=== PATIENT | female | born 1995 | race American Indian/Alaskan Native ===

== ENCOUNTER 2017-06-19 10:15 | Emergency (ER) | payer OTHER ==
--- NOTE | 2017-06-19 11:50 | EDM.PDOC ---
<Apurva Gimenez - Last Filed: 06/19/17 12:12> ED HPI GENERAL MEDICAL PROBLEM - General Chief Complaint: Back Pain or Injury Stated Complaint: BACK SPASMS/LEG PAIN Time Seen by Provider: 06/19/17 10:44 - History of Present Illness INITIAL COMMENTS - FREE TEXT/NARRATIVE: Patient is a 22 year old female who presents with multiple complaints. Her main concerns are bilateral knee pain and mid back pain. She states she tore ligaments in both her knees in 2014. She has had pain since then but the pain has been significantly worse since Monday, and it hurts to walk and bend both her knees. Her back pain began after she saw a chiropractor in [place] in February 2017. She also states she gets back spasms and pain with deep inspiration. She also reports non-specific shoulder pain and pain in her right thumb. She was seen in the [place] ED in [facility] on Monday for her pain and was sent home with prescriptions for diazepam and orphenadrine. She states she has had no relief from her pain from the medications. She vomited once this morning after taking her medication. She denies any numbness or tingling in her extremities. She takes tylenol occasionally for her pain. She has a history of PCOS but does not take any medications nor follows with a PCP. No family history of any autoimmune arthritis that she knows of. - Related Data Allergies Allergy/AdvReac Type Severity Reaction Status Date / Time No Known Allergies Allergy Verified 06/19/17 10:26 Home Meds: Home Meds Acetaminophen/HYDROcodone [[place] 325-5 MG] 1 tab PO Q6HR PRN #20 tablet [Rx] Diazepam [Valium] 5 mg PO TID PRN 06/19/17 [History] Naproxen [Naprosyn] 500 mg PO Q12HR #14 tab 06/19/17 [Rx] Orphenadrine [Norflex] 100 mg PO QID 06/19/17 [History] Past Medical History Musculoskeletal History: Reports: Back Pain, Chronic, Other (See Below) Other Musculoskeletal History: chronic bilateral knee pain Social & Family History - Tobacco Use Smoking Status *Q: Never Smoker Second Hand Smoke Exposure: No - Caffeine Use Caffeine Use: Reports: Soda - Recreational Drug Use Recreational Drug Use: No ED ROS GENERAL - Review of Systems Constitutional: Reports: No Symptoms Respiratory: Reports: Shortness of Breath, Other (pain with deep inspiration due to back pain) Cardiovascular: Reports: No Symptoms GI/Abdominal: Reports: Nausea, Vomiting (x1). Denies: Abdominal Pain, Constipation Musculoskeletal: Reports: Neck Pain, Shoulder Pain, Back Pain, Hand Pain (right thumb), Joint Pain, Muscle Pain Neurological: Denies: Numbness, Tingling ED EXAM, UPPER BACK/NECK PAIN - Physical Exam Exam Limited By: No Limitations General Appearance: Alert, No Apparent Distress Back Exam: Decreased Range of Motion, Other (mid back muscular pain). No: Vertebral Tenderness Extremities: Limited Range of Motion (due to bilateral knee pain), Other ( tenderness over left patellar tendon; tenderness over righ tibial plateau; non specific pain with ROM). No: Slow Capillary Refill, Joint Swelling, Redness Neurologic: No Motor/Sensory Deficits, Alert, Normal Mood/Affect, Oriented x 3 Psychiatric: Normal Affect, Normal Mood Course - Vital Signs Last Recorded V/S: Last Vital Signs Temp 96.9 F 06/19/17 10:23 Pulse 98 06/19/17 10:23 Resp 18 06/19/17 10:23 BP 126/82 06/19/17 10:23 Pulse Ox 98 06/19/17 10:23 - Orders/Labs/Meds Orders: Active Orders 24 hr Category Date Time Status KAYLEEN SCREEN RFLX [REF] Stat Lab 06/19/17 11:40 Received Labs: Laboratory Tests 06/19/17 06/19/17 06/19/17 Range/Units 11:40 11:40 11:40 WBC 13.29 H (3.98-10.04) K/mm3 RBC 4.46 (3.98-5.22) M/mm3 Hgb 12.1 (11.2-15.7) gm/L Hct 38.3 (34.1-44.9) % MCV 85.9 (79.4-94.8) fl MCH 27.1 (25.6-32.2) pg MCHC 31.6 L (32.2-35.5) g/dl RDW Std Deviation 45.1 (36.4-46.3) fL Plt Count 490 H (182-369) K/mm3 MPV 9.1 L (9.4-12.3) fl Neut % (Auto) 71.6 H (34.0-71.1) % Lymph % (Auto) 21.1 (19.3-51.7) % [place] % (Auto) 6.3 (4.7-12.5) % Eos % (Auto) 0.2 L (0.7-5.8) Baso % (Auto) 0.4 (0.1-1.2) % Neut # (Auto) 9.52 H (1.56-6.13) K/mm3 Lymph # (Auto) 2.80 (1.18-3.74) K/mm3 [place] # (Auto) 0.84 H (0.24-0.36) K/mm3 Eos # (Auto) 0.03 L (0.04-0.36) K/mm3 Baso # (Auto) 0.05 (0.01-0.08) K/mm3 ESR 92 H (0-20) mm/hr Sodium 137 (136-145) mEq/L Potassium 4.2 (3.5-5.1) mEq/L Chloride 101 (98-107) mEq/L Carbon Dioxide 25 (21-32) mEq/L Anion Gap 15.2 H (5-15) BUN 16 (7-18) mg/dL Creatinine 1.0 (0.55-1.02) mg/dL Est Cr Clr Drug Dosing 96.96 mL/min Estimated GFR (MDRD) > 60 (>60) mL/min BUN/Creatinine Ratio 16.0 (14-18) Glucose 113 H (74-106) mg/dL Calcium 9.2 (8.5-10.1) mg/dL Total Bilirubin 0.3 (0.2-1.0) mg/dL AST 19 (15-37) U/L ALT 30 (14-59) U/L Alkaline Phosphatase 81 (46-116) U/L C-Reactive Protein 5.7 H* (<1.0) mg/dL Total Protein 9.2 H (6.4-8.2) g/dl Albumin 3.6 (3.4-5.0) g/dl Globulin 5.6 gm/dL Albumin/Globulin Ratio 0.6 L (1-2) Rheumatoid Factor Scrn (NEGATIVE) 06/19/17 Range/Units 11:40 WBC (3.98-10.04) K/mm3 RBC (3.98-5.22) M/mm3 Hgb (11.2-15.7) gm/L Hct (34.1-44.9) % MCV (79.4-94.8) fl MCH (25.6-32.2) pg MCHC (32.2-35.5) g/dl RDW Std Deviation (36.4-46.3) fL Plt Count (182-369) K/mm3 MPV (9.4-12.3) fl Neut % (Auto) (34.0-71.1) % Lymph % (Auto) (19.3-51.7) % [place] % (Auto) (4.7-12.5) % Eos % (Auto) (0.7-5.8) Baso % (Auto) (0.1-1.2) % Neut # (Auto) (1.56-6.13) K/mm3 Lymph # (Auto) (1.18-3.74) K/mm3 [place] # (Auto) (0.24-0.36) K/mm3 Eos # (Auto) (0.04-0.36) K/mm3 Baso # (Auto) (0.01-0.08) K/mm3 ESR (0-20) mm/hr Sodium (136-145) mEq/L Potassium (3.5-5.1) mEq/L Chloride (98-107) mEq/L Carbon Dioxide (21-32) mEq/L Anion Gap (5-15) BUN (7-18) mg/dL Creatinine (0.55-1.02) mg/dL Est Cr Clr Drug Dosing mL/min Estimated GFR (MDRD) (>60) mL/min BUN/Creatinine Ratio (14-18) Glucose (74-106) mg/dL Calcium (8.5-10.1) mg/dL Total Bilirubin (0.2-1.0) mg/dL AST (15-37) U/L ALT (14-59) U/L Alkaline Phosphatase (46-116) U/L C-Reactive Protein (<1.0) mg/dL Total Protein (6.4-8.2) g/dl Albumin (3.4-5.0) g/dl Globulin gm/dL Albumin/Globulin Ratio (1-2) Rheumatoid Factor Scrn Negative (NEGATIVE) Meds: Medications Discontinued Medications Generic Name Dose Route Start Last Admin Trade Name Freq PRN Reason Stop Dose Admin Hydrocodone Bitart/Acetaminophen 1 tab 06/19/17 13:59 06/19/17 14:07 [place] 325-5 Mg PO 06/19/17 14:00 1 tab ONETIME ONE Administration Ketorolac Tromethamine 60 mg 06/19/17 13:58 06/19/17 14:08 Toradol IM 06/19/17 13:59 60 mg ONETIME ONE Administration Prednisone 60 mg 06/19/17 13:58 06/19/17 14:08 Prednisone PO 06/19/17 13:59 60 mg ONETIME ONE Administration Departure - Departure Disposition: Home, Self-Care 01 Clinical Impression: Polyarthritis of multiple sites Back pain Qualifiers: Back pain location: thoracic back pain Chronicity: acute Back pain laterality: unspecified Qualified Code(s): M54.6 - Pain in thoracic spine - Discharge Information Prescriptions: Acetaminophen/HYDROcodone [[place] 325-5 MG] 1 tab PO Q6HR PRN #20 tablet PRN Reason: Pain Naproxen [Naprosyn] 500 mg PO Q12HR #14 tab Referrals: PCP,None [Primary Care Provider] - Forms: ED Department Discharge Additional Instructions: rest, increase activity slowly as tolerated, alternate heat and ice to areas of discomfort, naprosyn 500 mg twice daily with food, stop the previous meds prescribed Monday. Prednisone as prescribed. Tylenol up to 3 times daily for further pain relief or Hydrocodone 1 tab q 6 to 8 hr if needed for severe pain. Do not take tylenol and hydrocodone at the same time. Do not drive or work when taking hydrocodone. See Dr Reyes at our [facility] medical clinic 10:00 mtn time this June 22. - My Orders Last 24 Hours: My Active Orders 06/19/17 11:40 KAYLEEN SCREEN RFLX [REF] Stat - Assessment/Plan Last 24 Hours: My Active Orders 06/19/17 11:40 KAYLEEN SCREEN RFLX [REF] Stat <Uche Bahena - Last Filed: 06/19/17 14:36> ED HPI GENERAL MEDICAL PROBLEM - General Source of Information: Reports: Patient, RN Notes Reviewed ED ROS GENERAL - Review of Systems Review Of Systems: See Below Constitutional: Denies: Fever, Chills Respiratory: Denies: Pleuritic Chest Pain Skin: Denies: Rash, Erythema Neurological: Reports: Difficulty Walking (due to bilat knee discomfort) ED EXAM, UPPER BACK/NECK PAIN - Physical Exam Exam: See Below Head Exam: Atraumatic. No: Facial Swelling Neck Exam: Full Range of Motion Cardiovascular/Respiratory: Regular Rate, Rhythm Back Exam: Other Extremities: Other. No: Pedal Edema, Leg Pain, Increased Warmth Skin Exam: Normal Color, Warm/Dry. No: Rash Course - Re-Assessments/Exams Free Text/Narrative Re-Assessment/Exam: 06/19/17 14:27 Patient initially evaluated by JONNY Espinosa student. I agree with her hx and exam as documented. I also examined patient and took further hx. She does have sigificant low back, bilat knee, L hand discomfort which does seem to be inflamatory. CRP elevated, sed rate 92. Will start on prednisone 60 mg bid for 3 days and than taper, naprosyn 500 mg bid, with tylenol or hydrocodone in addition depending on pain severity. Discharge instr. as documented. Followup with Dr Reyes, Clinic . Departure - Departure Time of Disposition: 14:05 Condition: Fair
[2017-06-19] MEDS ORDERED: predniSONE 20 MG Tab PO ONE (13:58)
[2017-06-19] MEDS ORDERED: Ketorolac 60 MG/2 ML SDV IM ONE (13:58)
[2017-06-19] MEDS ORDERED: Acetaminophen/HYDROcodone 325-5 MG Tab PO ONE (13:59)
== END 2017-06-19 14:30 | disposition home or self-care (01) ==
LOC: JD.ED 10:15
DX: M54.6 Pain in thoracic spine (principal); M25.561 Pain in right knee; M25.562 Pain in left knee; M13.0 Polyarthritis, unspecified
CPT/HCPCS: 36415; 80053; 85025; 85652; 86038; 86140; 86430; 96372; 99283; A9270; J1885

== ENCOUNTER 2017-07-11 17:44 | Emergency (ER) | payer OTHER ==
[2017-07-11] MEDS ORDERED: Naproxen 500 MG Tab PO ONE (18:33)
--- NOTE | 2017-07-11 18:42 | EDM.PDOC ---
ED HPI GENERAL MEDICAL PROBLEM - General Chief Complaint: Back Pain or Injury Stated Complaint: KNEE PAIN AND BACK PAIN Time Seen by Provider: 07/11/17 18:00 Source of Information: Reports: Patient, Old Records History Limitations: Reports: No Limitations - History of Present Illness INITIAL COMMENTS - FREE TEXT/NARRATIVE: The patient presents with mid-back pain since February 2017, causing trouble sleeping. She has had bilateral knee pain and inflammation for over a month, right second toe pain and inflammation for over 2 weeks, right elbow pain for about one month, right first MCP joint pain for about one month, and left 2nd and 3rd PIP joint pain and inflammation for about a week. She was seen at the [facility] ED on 06/17/2017, and discharged home with prescriptions for Valium and Norflex. She states that these did not help. She was then seen in our emergency department on 06/19/2017. Her WBC was elevated at 13.29, her ESR elevated at 92, CRP 5.7, however, her RF and KAYLEEN were both negative. She was prescribed a prednisone taper, [place], and naproxen. She then followed up with Dr. Reyes on 06/27/2017. Dr. Reyes offered x- rays of her knees and a referrals to PT and a Assistant Terminal Manager in [place], all of which the patient declined, citing lack of insurance. She was prescribed [place] for PCOS, and naproxen 500 mg Q12h hrs, that the patient states she did not fill, because she does not believe that it helps. The patient has an appointment to follow-up with Dr. Reyes tomorrow morning at 09:30. She presents to the ED tonight, however, because she does not feel that she can make it until tomorrow. She states that she took some [id number] Tylenol, without relief. Treatments MACHINE FITTER: Reports: Other (see below) Other Treatments MACHINE FITTER: tylenol arthritis 650 mg 2 hours ago Bilateral Knee Pain Score (Numeric/FACES): 9 Back Pain Score (Numeric/FACES): 7 - Related Data Allergies Allergy/AdvReac Type Severity Reaction Status Date / Time No Known Allergies Allergy Verified 07/11/17 17:56 Home Meds: Home Meds Acetaminophen/HYDROcodone [[place] 325-5 MG] 1 tab PO Q6HR PRN #20 tablet [Rx] Diazepam [Valium] 5 mg PO TID PRN 06/19/17 [History] Naproxen [Naprosyn] 500 mg PO Q12HR #14 tab 06/19/17 [Rx] Orphenadrine [Norflex] 100 mg PO QID 06/19/17 [History] Past Medical History HEENT History: Reports: Allergic Rhinitis [employer] History: Reports: Polycystic Ovaries Musculoskeletal History: Reports: Other (See Below) (Polyarthritis, NOS) Psychiatric History: Reports: Anxiety Endocrine/Metabolic History: Reports: Obesity/BMI 30+ Social & Family History - Tobacco Use Smoking Status *Q: Light Tobacco Smoker Years of Tobacco use: 10 Packs/Tins Daily: 0.1 Second Hand Smoke Exposure: No - Caffeine Use Caffeine Use: Reports: Soda - Alcohol Use Alcohol Use History: Yes Date/Time of Last Drink Comment: History of alcohol abuse - Recreational Drug Use Recreational Drug Use: No ED ROS GENERAL - Review of Systems Review Of Systems: ROS reveals no pertinent complaints other than HPI. ED EXAM, GENERAL - Physical Exam Exam: See Below Exam Limited By: No Limitations General Appearance: Alert, WD/WN, No Apparent Distress Eye Exam: Bilateral Eye: Normal Inspection Ears: Normal External Exam, Hearing Grossly Normal Nose: Normal Inspection, No Blood Throat/Mouth: Normal Inspection, Normal Lips, Normal Voice, No Airway Compromise Head: Atraumatic, Normocephalic Neck: Normal Inspection Back Exam: Normal Inspection Extremities: Other (Synovitis noted to the right 2nd toe, and to the left 3rd and 4th PIP joints. No visible abnormality to either of the patient's knees, right elbow, or right first MCP joint.) Course - Vital Signs Last Recorded V/S: Last Vital Signs Temp 35.6 C 07/11/17 17:56 Pulse 78 07/11/17 17:56 Resp 15 07/11/17 17:56 BP 118/67 07/11/17 17:56 Pulse Ox 98 07/11/17 17:56 - Orders/Labs/Meds Meds: Medications Discontinued Medications Generic Name Dose Route Start Last Admin Trade Name Freq PRN Reason Stop Dose Admin Naproxen 500 mg 07/11/17 18:33 07/11/17 18:48 Naprosyn PO 07/11/17 18:34 500 mg ONETIME ONE Administration - Re-Assessments/Exams Free Text/Narrative Re-Assessment/Exam: 07/11/17 18:38 Clearly, the patient has polyarthritis, however, the etiology is unclear. Her ESR and CRP were both elevated, and there is obvious synovitis to her affected joints, however, with the exception of her knees, the joints involved are asymmetric. Both her RF and KAYLEEN were negative. While this makes lupus extremely unlikely, it does not rule out seronegative arthritis. I explained to the patient that the diagnosis cannot be made from the ED, and that she will have to see a Assistant Terminal Manager. For today's purposes, I am reluctant to re-prescribe prednisone, given its long- term effects. The patient was prescribed naproxen by Dr. Reyes, but she has not filled the prescription. I am encouraging her to do so. Departure - Departure Time of Disposition: 18:34 Disposition: Home, Self-Care 01 Condition: Fair Clinical Impression: Polyarthritis of multiple sites - Discharge Information Instructions: Arthritis Referrals: Richa Reyes MD [Primary Care Provider] - Forms: ED Department Discharge Additional Instructions: You were seen in the emergency room for continued mid back, bilateral knee, right second toe, right elbow, right thumb joint and left third and fourth finger swelling and pain. Unfortunately, the cause of your symptoms is not able to be diagnosed from the ER. You will need to see a Assistant Terminal Manager. You were started on naproxen in the ER. We recommend that you fill the prescription given to by Dr. Reyes and take it every 12 hours, as prescribed. We recommend that you either follow-up with Dr. Reyes at your previously scheduled appointment tomorrow morning at 09:30 OR make your own appointment to see a Assistant Terminal Manager in [place]. If any other problems, please do not hesitate to return to the ER.
== END 2017-07-11 18:50 | disposition home or self-care (01) ==
LOC: JD.ED 17:44
DX: M13.0 Polyarthritis, unspecified (principal); F17.210 Nicotine dependence, cigarettes, uncomplicated; Z79.899 Other long term (current) drug therapy
CPT/HCPCS: 99283; A9270

== ENCOUNTER 2018-05-17 13:11 | Emergency (ER) | payer SELFPAY ==
--- NOTE | 2018-05-17 14:12 | EDM.PDOC ---
ED HPI GENERAL MEDICAL PROBLEM - General Chief Complaint: Back Pain or Injury Stated Complaint: ARTHRITIS Time Seen by Provider: 05/17/18 13:21 Source of Information: Reports: Patient, RN Notes Reviewed - History of Present Illness INITIAL COMMENTS - FREE TEXT/NARRATIVE: 22-year-old female comes in with bilateral low back discomfort. 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 She has been diagnosed with rheumatoid arthritis. She had been living in [place], came to [place] to be with friends or family about 10 days ago, left her meds in [place]. She was on meloxicam, was getting subcutaneous Humira every 2 weeks and also using some when necessary hydrocodone. Also her menstrual periods been very irregular the last 2 months with some intermittent spotting, did what may have been a short menstrual period about a week ago. Has not been using control so does have some concerns about possible as well. Had some voiding frequency occasional mild dysuria, also concern about possible UTI. Lower Back Pain Score (Numeric/FACES): 8 Left Knee Pain Score (Numeric/FACES): 8 Right Toe-Middle Pain Score (Numeric/FACES): 8 - Related Data Allergies Allergy/AdvReac Type Severity Reaction Status Date / Time No Known Allergies Allergy Verified 05/17/18 13:25 Home Meds: Home Meds Acetaminophen/HYDROcodone [[place] 325-5 MG] 1 tab PO Q8HR PRN #14 tablet [Rx] Adalimumab [Humira] 10 mg SQ ASDIRECTED 05/17/18 [History] Control Pill 05/17/18 [History] Ibuprofen [Motrin] 800 mg PO TID #20 tablet 05/17/18 [Rx] Meloxicam 15 mg PO DAILY 05/17/18 [History] Past Medical History - Past Health History Medical/Surgical History: Denies Medical/Surgical History HEENT History: Reports: Allergic Rhinitis DIPLOMATIC OFFICER History: Reports: Polycystic Ovaries Musculoskeletal History: Reports: Other (See Below) (Polyarthritis, NOS) Other Musculoskeletal History: chronic bilateral knee pain Psychiatric History: Reports: Anxiety Endocrine/Metabolic History: Reports: Obesity/BMI 30+ Social & Family History - Caffeine Use Caffeine Use: Reports: Soda ED ROS GENERAL - Review of Systems Review Of Systems: See Below Constitutional: Denies: Fever, Chills HEENT: Reports: No Symptoms GI/Abdominal: Denies: Abdominal Pain, Nausea, Vomiting : Reports: Frequency, Urgency Musculoskeletal: Reports: Back Pain Skin: Reports: No Symptoms ED EXAM,LOWER BACK PAIN/INJURY - Physical Exam Exam: See Below General Appearance: Alert Throat/Mouth: Normal Inspection, Normal Oropharynx Head: Atraumatic Neck: Supple Respiratory/Chest: No Respiratory Distress, Lungs Clear, Normal Breath Sounds Cardiovascular: Regular Rate, Rhythm GI/Abdominal: Soft, Non-Tender Back Exam: Other (Mild tenderness bilateral low back over the sacroiliac area home a mid lumbar spine nontender) Extremities: Other (She has mild swelling and tenderness of the PIP joints of first and second fingers bilateral, MCPs are nontender without swelling or tenderness, good range of motion.) Neurological: Alert, No Motor/Sensory Deficits Skin Exam: Warm, Dry, Normal Color Course - Vital Signs Last Recorded V/S: Last Vital Signs Temp 97.8 F 05/17/18 13:15 Pulse 100 05/17/18 13:15 Resp 16 05/17/18 13:15 BP 128/87 05/17/18 13:15 Pulse Ox 99 05/17/18 13:15 - Orders/Labs/Meds Labs: Laboratory Tests 05/17/18 05/17/18 Range/Units 13:55 13:55 Urine Color Yellow (Yellow) Urine Appearance Clear (Clear) Urine pH 7.0 (5.0-8.0) Ur Specific [place] 1.020 (1.005-1.030) Urine Protein 1+ H (Negative) Urine Glucose (UA) Negative (Negative) Urine Ketones Negative (Negative) Urine Occult Blood Negative (Negative) Urine Nitrite Negative (Negative) Urine Bilirubin Negative (Negative) Urine Urobilinogen 0.2 (0.2-1.0) Ur Leukocyte Esterase Negative (Negative) Urine RBC Not seen (0-5) /hpf Urine WBC Not seen (0-5) /hpf Ur Epithelial Cells 0-5 (0-5) /hpf Urine Bacteria Rare (FEW) /hpf Urine Mucus Not seen (FEW) /hpf Urine HCG, Qual Negative (NEGATIVE) - Re-Assessments/Exams Free Text/Narrative Re-Assessment/Exam: 05/17/18 15:46 UA did come back negative for infection, hCG test also negative. She states her mother has mailed her Humira and meloxicam overnight or priority but with this heading close to the weekend that she may not get the meds until Monday. Have her take Motrin 800 mg twice a day Tylenol or hydrocodone if needed for breakthrough. Discharge instructions as documented. Departure - Departure Time of Disposition: 15:39 Disposition: Home, Self-Care 01 Condition: Fair Clinical Impression: Back pain Qualifiers: Back pain location: thoracic back pain Chronicity: acute Back pain laterality: unspecified Qualified Code(s): M54.6 - Pain in thoracic spine Rheumatoid arthritis Qualifiers: Rheumatoid arthritis location: hand Laterality: bilateral - Discharge Information Prescriptions: Acetaminophen/HYDROcodone [[place] 325-5 MG] 1 tab PO Q8HR PRN #14 tablet PRN Reason: Pain Ibuprofen [Motrin] 800 mg PO TID #20 tablet Referrals: PCP,None [Primary Care Provider] - Forms: ED Department Discharge Additional Instructions: Motrin 800 mg 3 times daily, you may take Tylenol in between doses for extra pain relief or hydrocodone if needed for severe pain. Continue the Humira as previously prescribed. Follow-up clinic or with your housing assistant as needed.
== END 2018-05-17 15:56 | disposition home or self-care (01) ==
LOC: JD.ED 13:11
DX: M54.6 Pain in thoracic spine (principal); M06.041 Rheumatoid arthritis without rheumatoid factor, right hand; M06.042 Rheumatoid arthritis without rheumatoid factor, left hand
CPT/HCPCS: 81001; 81025; 99283